=== PATIENT | female | born 1965 | race African-American/Black ===

== ENCOUNTER 2017-09-09 11:05 | Emergency (ER) | payer OTHER ==
[2017-09-09 11:17] VITALS: BP 126/74; PULSE 69; TEMP 98.8; BMI 34.8
[2017-09-09] MEDS ORDERED: KETOROLAC TROMETHAMINE 60 MG/2 ML VIAL IM ONE (12:00)
[2017-09-09] MEDS ORDERED: KETOROLAC TROMETHAMINE 60 MG/2 ML VIAL ONE (12:04)
--- NOTE | 2017-09-09 12:12 | PDOC ---
History of Present Illness - General Chief Complaint: Back Pain Stated Complaint: BACK PAIN Time Seen by Provider: 09/09/17 11:27 - History of Present Illness Initial Comments: 09/09/17 12:03 CHIEF COMPLAINT: back pain HISTORY OF PRESENT ILLNESS: 52 yo F with no PMH presents to fast track with mid back pain x 2 days. Patient reports she woke up "feeling something on her back " but then when she was driving and she turned her head to the right, she felt something tighten and then she felt pain. She denies any loss of sensation to her extremities and reports she is ambulatory, but she just "didn't feel like this is right" and wanted to come in for evaluation. PAST MEDICAL HISTORY: Denies past medical history FAMILY HISTORY: Denies SOCIAL HISTORY: Denies tobacco, alcohol, illicit drug use. SURGICAL HISTORY: Denies ALLERGIES: No known drug allergies REVIEW OF SYSTEMS General/Constitutional: Denies fever or chills. Denies weakness Cardiovascular: Denies chest pain or shortness of breath. Respiratory: Denies cough, wheezing. Genitourinary: Denies dysuria, frequency, or change in urination. Musculoskeletal: Right upper back pain. Denies joint or muscle swelling or pain. Skin: Denies rash or easy bruising. Neurologic: Denies headache, vertigo, loss of consciousness, or loss of sensation. PHYSICAL EXAM General Appearance: Well-appearing, appropriately dressed. No apparent distress. HEENT: EOMI, PERRLA. No conjunctival pallor. No photophobia, scleral icterus. Respiratory/Chest: Lungs CTAB. Cardiovascular: RRR. S1, S2. Musculoskeletal/Extremities: TTP to latissimus dorsi just inferior to R scapula. Normal inspection. FROM of all extremities, normal capillary refill. Pelvis Stable. No CVA tenderness. No tenderness to extremities, pedal edema, swelling , erythema or deformity. Integumentary: Appropriate color, dry, warm. No cyanosis, erythema, jaundice or rash Neurologic: punch molder II-XII intact. Fully oriented, alert. Appropriate mood/affect. Motor strength 5/5. No appreciable EOM palsy, facial droop or sensory deficit. Past History - Past Medical History Allergies/Adverse Reactions: Allergies Allergy/AdvReac Type Severity Reaction Status Date / Time No Known Allergies Allergy Verified 09/09/17 11:14 Home Medications: Ambulatory Orders Cyclobenzaprine HCl 7.5 mg PO HS PRN #7 tablet 09/09/17 Diclofenac Sodium 50 mg PO BID #14 tablet. 09/09/17 COPD: No - Reproductive History Cervical CA: No Dysfunctional Uterine Bleeding: No Ectopic : No Endometrial CA: No Polycystic Ovaries: No Tubal Ligation: No - Suicide/Smoking/Psychosocial Hx Smoking Status: Yes Smoking History: Never smoked Have you smoked in the past 12 months: No Number of Cigarettes Smoked Daily: 0 Hx Alcohol Use: No Drug/Substance Use Hx: No *Physical Exam - Vital Signs Last Vital Signs Temp Pulse Resp BP Pulse Ox 98.8 F 69 18 126/74 98 09/09/17 11:14 09/09/17 11:14 09/09/17 11:14 09/09/17 11:14 09/09/17 11:14 Medical Decision Making - Medical Decision Making 09/09/17 12:12 52 yo F with no PMH presents to fast track with mid back pain x 2 days. -60 mg Toradol NSAIDS, muscle relaxants. Advised patient to take medication as prescribed and follow up with ortho if symptoms persist. Advised patient of signs and symptoms for return to ED. Patient verbalized understanding and agrees to plan. *DC/Admit/Observation/Transfer Diagnosis at time of Disposition: Muscle strain of right scapular region - Discharge Dispostion Disposition: HOME Condition at time of disposition: Stable Admit: No - Prescriptions Prescriptions: Cyclobenzaprine HCl 7.5 mg PO HS PRN #7 tablet PRN Reason: Back Pain Diclofenac Sodium 50 mg PO BID #14 tablet.dr - Referrals Referrals: Martina Weathers [Primary Care Provider] - - Patient Instructions Printed Discharge Instructions: DI for Muscle Strain Additional Instructions: Please take medication as prescribed. As discussed, if your symptoms do not improve in 5-7 days, please follow up with an orthopedics for further evaluation and a possible MRI or physical therapy. If you experience any loss of sensation to your extremities, any loss of bowel or bladder function, any swelling or increased pain to your leg, please return to the ER. - Post Discharge Activity
== END 2017-09-09 12:30 | disposition home or self-care (01) ==
LOC: JERFT 11:05
PROC: 3E0233Z Introduction of Anti-inflammatory into Muscle, Percutaneous Approach (ICD-10-PCS; principal; 2017-09-09)
DX: S46.811A Strain of other muscles, fascia and tendons at shoulder and upper arm level, right arm, initial encounter (principal); X50.9XXA Other and unspecified overexertion or strenuous movements or postures, initial encounter; Y93.89 Activity, other specified; Y92.89 Other specified places as the place of occurrence of the external cause; Y99.8 Other external cause status
CPT/HCPCS: 96372; 99281-25

== ENCOUNTER 2020-07-11 11:33 | Inpatient (IN) | payer OTHER ==
[2020-07-11] MEDS ORDERED: DEXAMETHASONE 4 MG TABLET (FP) PO ONE (12:46)
[2020-07-11 13:24] LABS: BASO % 0.2 % (0-2.0); EOS % 0.1 % (0-4.5); HEMATOCRIT 40.1 % (32.4-45.2); HEMOGLOBIN 13.1 GM/dL (10.7-15.3); MCHC 32.8 g/dl (32.0-36.0); MEAN CELL VOLUME 82.5 fl (80-96); MEAN PLT VOLUME 9.5 fl (7.5-11.1); MONO % 6.2 % (3.8-10.2); NEUT % 85.5 % (42.8-82.8); PLATELET COUNT 203 K/MM3 (134-434); RBC 4.86 M/mm3 (3.60-5.2); RDW 14.3 % (11.6-15.6)
[2020-07-11 13:45] LABS: CALCIUM 8.8 mg/dL (8.5-10.1)
[2020-07-11 13:46] LABS: BLOOD UREA NITROGEN 9.1 mg/dL (7-18)
[2020-07-11] MEDS ORDERED: DEXAMETHASONE 4 MG TABLET (FP) ONE (13:48)
[2020-07-11 13:49] LABS: CREATININE 0.7 mg/dL (0.55-1.3); POTASSIUM 6.3 mmol/L (3.5-5.1)
[2020-07-11 13:50] LABS: BILIRUBIN,TOTAL 0.5 mg/dL (0.2-1); TOT PROT 7.2 g/dl (6.4-8.2)
[2020-07-11 14:47] LABS: CALCIUM 8.9 mg/dL (8.5-10.1); POTASSIUM 4.1 mmol/L (3.5-5.1)
[2020-07-11 14:49] LABS: BLOOD UREA NITROGEN 9.3 mg/dL (7-18)
[2020-07-11 14:52] LABS: CREATININE 0.6 mg/dL (0.55-1.3)
[2020-07-11 14:54] LABS: TOT PROT 6.6 g/dl (6.4-8.2)
[2020-07-11 14:55] LABS: BILIRUBIN,TOTAL 0.4 mg/dL (0.2-1)
[2020-07-11] MEDS ORDERED: ALBUTEROL SO4 2.5/IPRATROPIUM 0.5 INH SOL 3 ML VIAL.NEB. NEB PRN (19:55)
[2020-07-11] MEDS ORDERED: ALBUTEROL SO4 HFA INHALER IH PRN (19:58)
[2020-07-12 05:21] VITALS: BMI 30.5
[2020-07-12 08:53] LABS: BASO % 0.1 % (0-2.0); HEMOGLOBIN 12.9 GM/dL (10.7-15.3); LYMPH % 10.3 % (8-40); MCH 27.2 pg (25.7-33.7); MCHC 33.2 g/dl (32.0-36.0); MEAN CELL VOLUME 82.1 fl (80-96); MEAN PLT VOLUME 9.7 fl (7.5-11.1); MONO % 15.7 % (3.8-10.2); NEUT % 73.9 % (42.8-82.8); PLATELET COUNT 219 K/MM3 (134-434); RBC 4.75 M/mm3 (3.60-5.2); RDW 14.5 % (11.6-15.6); WHITE BLOOD COUNT 3.4 K/mm3 (4.0-10.0)
[2020-07-12 09:08] LABS: POTASSIUM 4.3 mmol/L (3.5-5.1)
[2020-07-12 09:20] LABS: ALBUMIN 2.8 g/dl (3.4-5.0); BILIRUBIN,TOTAL 0.4 mg/dL (0.2-1); BLOOD UREA NITROGEN 15.5 mg/dL (7-18); CALCIUM 9.1 mg/dL (8.5-10.1); TOT PROT 6.5 g/dl (6.4-8.2)
[2020-07-12 09:22] LABS: MAGNESIUM 2.2 mg/dL (1.8-2.4)
[2020-07-12 09:23] LABS: CREATININE 0.6 mg/dL (0.55-1.3)
[2020-07-12 09:24] LABS: PHOSPHOROUS 3.2 mg/dL (2.5-4.9)
[2020-07-12] MEDS ORDERED: DEXAMETHASONE 4 MG TABLET (FP) PO SCH (10:00)
[2020-07-12] MEDS: ZINC SULFATE 220 MG CAPSULE (FP) PO SCH (10:10)
[2020-07-12] MEDS: ASCORBIC ACID 500 MG TABLET (FP) PO SCH (10:10)
[2020-07-12] MEDS: ENOXAPARIN NA (PORCINE) 40 MG/0.4 ML DISP.SYRIN SQ SCH (10:10)
[2020-07-12] MEDS ORDERED: REMDESIVIR 200 MG in SODIUM CHLORIDE 210 ML IVPB ONE (19:00)
[2020-07-12] MEDS: FAMOTIDINE 20 MG/50 ML IVPB 20 MG/50 ML MG IVPB SCH (20:59)
[2020-07-13] MEDS: DEXAMETHASONE SOD PHOSPHATE 4 MG/1 ML VIAL IVPB SCH (09:44)
[2020-07-13] MEDS: ENOXAPARIN NA (PORCINE) 40 MG/0.4 ML DISP.SYRIN SQ SCH (09:44)
[2020-07-13] MEDS: ASCORBIC ACID 500 MG TABLET (FP) PO SCH (09:48)
[2020-07-13] MEDS: ZINC SULFATE 220 MG CAPSULE (FP) PO SCH (09:49)
[2020-07-13] MEDS: FAMOTIDINE 20 MG/50 ML IVPB 20 MG/50 ML MG IVPB SCH ×2 (09:49→21:25)
[2020-07-13 10:06] LABS: POTASSIUM 4.2 mmol/L (3.5-5.1)
[2020-07-13 10:08] LABS: CALCIUM 9.1 mg/dL (8.5-10.1)
[2020-07-13 10:09] LABS: ALBUMIN 2.8 g/dl (3.4-5.0); BLOOD UREA NITROGEN 18.8 mg/dL (7-18)
[2020-07-13 10:12] LABS: CREATININE 0.7 mg/dL (0.55-1.3)
[2020-07-13 10:13] LABS: BILIRUBIN,TOTAL 0.8 mg/dL (0.2-1); TOT PROT 6.4 g/dl (6.4-8.2)
[2020-07-13] MEDS: REMDESIVIR 100 MG in SODIUM CHLORIDE 230 ML IVPB SCH (18:48)
[2020-07-14 10:01] LABS: HEMOGLOBIN 12.8 GM/dL (10.7-15.3); MCHC 32.9 g/dl (32.0-36.0); MEAN PLT VOLUME 8.6 fl (7.5-11.1); PLATELET COUNT 307 K/MM3 (134-434); RBC 4.75 M/mm3 (3.60-5.2); RDW 14.5 % (11.6-15.6); WHITE BLOOD COUNT 5.4 K/mm3 (4.0-10.0)
[2020-07-14] MEDS: ENOXAPARIN NA (PORCINE) 40 MG/0.4 ML DISP.SYRIN SQ SCH (10:09)
[2020-07-14] MEDS: ZINC SULFATE 220 MG CAPSULE (FP) PO SCH (10:09)
[2020-07-14] MEDS: ASCORBIC ACID 500 MG TABLET (FP) PO SCH (10:10)
[2020-07-14] MEDS: FAMOTIDINE 20 MG/50 ML IVPB 20 MG/50 ML MG IVPB SCH ×2 (10:10→21:13)
[2020-07-14 10:26] LABS: ALBUMIN 2.6 g/dl (3.4-5.0)
[2020-07-14 10:30] LABS: CREATININE 0.8 mg/dL (0.55-1.3)
[2020-07-14 10:31] LABS: BILIRUBIN,TOTAL 0.4 mg/dL (0.2-1); TOT PROT 5.9 g/dl (6.4-8.2)
[2020-07-14 10:38] LABS: CALCIUM 8.9 mg/dL (8.5-10.1)
[2020-07-14] MEDS: DEXAMETHASONE SOD PHOSPHATE 4 MG/1 ML VIAL IVPB SCH (11:21)
[2020-07-14] MEDS: APIXABAN 5 MG TABLET PO SCH ×2 (13:26→21:13)
[2020-07-14] MEDS: REMDESIVIR 100 MG in SODIUM CHLORIDE 230 ML IVPB SCH (18:25)
[2020-07-14] MEDS ORDERED: APIXABAN 5 MG TABLET PO SCH (22:00)
[2020-07-15 09:44] LABS: HEMATOCRIT 37.8 % (32.4-45.2); HEMOGLOBIN 12.4 GM/dL (10.7-15.3); MCHC 32.7 g/dl (32.0-36.0); MEAN CELL VOLUME 82.5 fl (80-96); MEAN PLT VOLUME 8.8 fl (7.5-11.1); PLATELET COUNT 348 K/MM3 (134-434); RBC 4.59 M/mm3 (3.60-5.2); RDW 14.4 % (11.6-15.6); WHITE BLOOD COUNT 7.7 K/mm3 (4.0-10.0)
[2020-07-15 10:07] LABS: POTASSIUM 3.9 mmol/L (3.5-5.1)
[2020-07-15] MEDS: FAMOTIDINE 20 MG/50 ML IVPB 20 MG/50 ML MG IVPB SCH ×2 (10:16→21:47)
[2020-07-15] MEDS: APIXABAN 5 MG TABLET PO SCH ×2 (10:16→21:47)
[2020-07-15] MEDS: ASCORBIC ACID 500 MG TABLET (FP) PO SCH ×2 (10:16→21:47)
[2020-07-15] MEDS: ZINC SULFATE 220 MG CAPSULE (FP) PO SCH (10:16)
[2020-07-15] MEDS: DEXAMETHASONE SOD PHOSPHATE 4 MG/1 ML VIAL IVPB SCH (10:16)
[2020-07-15 10:20] LABS: ALBUMIN 2.4 g/dl (3.4-5.0); BLOOD UREA NITROGEN 11.6 mg/dL (7-18)
[2020-07-15 10:21] LABS: PHOSPHOROUS 2.8 mg/dL (2.5-4.9)
[2020-07-15 10:23] LABS: BILIRUBIN,TOTAL 0.5 mg/dL (0.2-1); CREATININE 0.6 mg/dL (0.55-1.3); TOT PROT 5.8 g/dl (6.4-8.2)
[2020-07-15 10:24] LABS: CALCIUM 8.7 mg/dL (8.5-10.1)
[2020-07-15] MEDS: REMDESIVIR 100 MG in SODIUM CHLORIDE 230 ML IVPB SCH (18:07)
[2020-07-15] MEDS: guaiFENesin 200 MG/10 ML 10 ML UNIT-DOSE CUPS PO PRN (18:16)
[2020-07-16 09:05] LABS: HEMATOCRIT 37.1 % (32.4-45.2); HEMOGLOBIN 12.3 GM/dL (10.7-15.3); MCHC 33.1 g/dl (32.0-36.0); MEAN CELL VOLUME 81.7 fl (80-96); MEAN PLT VOLUME 8.6 fl (7.5-11.1); PLATELET COUNT 405 K/MM3 (134-434); RBC 4.55 M/mm3 (3.60-5.2); RDW 14.3 % (11.6-15.6); WHITE BLOOD COUNT 8.4 K/mm3 (4.0-10.0)
[2020-07-16 09:10] LABS: POTASSIUM 4.2 mmol/L (3.5-5.1)
[2020-07-16 09:16] LABS: ALBUMIN 2.3 g/dl (3.4-5.0)
[2020-07-16 09:17] LABS: BLOOD UREA NITROGEN 14.2 mg/dL (7-18); CALCIUM 8.9 mg/dL (8.5-10.1)
[2020-07-16 09:19] LABS: CREATININE 0.7 mg/dL (0.55-1.3)
[2020-07-16 09:20] LABS: BILIRUBIN,TOTAL 0.4 mg/dL (0.2-1); TOT PROT 5.8 g/dl (6.4-8.2)
[2020-07-16 09:21] LABS: N-TERMINAL BNP 220.4 pg/ml (5-125)
[2020-07-16] MEDS: FAMOTIDINE 20 MG/50 ML IVPB 20 MG/50 ML MG IVPB SCH ×2 (11:00→21:40)
[2020-07-16] MEDS: APIXABAN 5 MG TABLET PO SCH ×2 (11:01→21:39)
[2020-07-16] MEDS: ZINC SULFATE 220 MG CAPSULE (FP) PO SCH (11:01)
[2020-07-16] MEDS: ASCORBIC ACID 500 MG TABLET (FP) PO SCH ×2 (11:01→21:39)
[2020-07-16] MEDS: DEXAMETHASONE SOD PHOSPHATE 4 MG/1 ML VIAL IVPB SCH (12:18)
[2020-07-16] MEDS: REMDESIVIR 100 MG in SODIUM CHLORIDE 230 ML IVPB SCH (18:43)
[2020-07-17] MEDS ORDERED: PT OWN MED DRAWER 7, Y5N ONE (09:23)
[2020-07-17 09:30] LABS: HEMATOCRIT 38.2 % (32.4-45.2); HEMOGLOBIN 12.7 GM/dL (10.7-15.3); MCH 27.3 pg (25.7-33.7); MCHC 33.2 g/dl (32.0-36.0); MEAN CELL VOLUME 82.4 fl (80-96); MEAN PLT VOLUME 8.7 fl (7.5-11.1); PLATELET COUNT 476 K/MM3 (134-434); RBC 4.63 M/mm3 (3.60-5.2); RDW 14.5 % (11.6-15.6); WHITE BLOOD COUNT 7.3 K/mm3 (4.0-10.0)
[2020-07-17] MEDS: guaiFENesin 200 MG/10 ML 10 ML UNIT-DOSE CUPS PO PRN (09:33)
[2020-07-17] MEDS: DEXAMETHASONE SOD PHOSPHATE 4 MG/1 ML VIAL IVPB SCH (09:33)
[2020-07-17] MEDS: ZINC SULFATE 220 MG CAPSULE (FP) PO SCH (09:35)
[2020-07-17] MEDS: ASCORBIC ACID 500 MG TABLET (FP) PO SCH ×2 (09:35→21:01)
[2020-07-17] MEDS: APIXABAN 5 MG TABLET PO SCH ×2 (09:36→21:01)
[2020-07-17] MEDS: FAMOTIDINE 20 MG TABLET PO SCH (09:36)
[2020-07-17 09:55] LABS: POTASSIUM 4.5 mmol/L (3.5-5.1)
[2020-07-17 10:08] LABS: BLOOD UREA NITROGEN 12.8 mg/dL (7-18); CALCIUM 9.4 mg/dL (8.5-10.1)
[2020-07-17 10:09] LABS: ALBUMIN 2.4 g/dl (3.4-5.0)
[2020-07-17 10:16] LABS: BILIRUBIN,TOTAL 0.4 mg/dL (0.2-1); CREATININE 0.6 mg/dL (0.55-1.3); PHOSPHOROUS 3.6 mg/dL (2.5-4.9); TOT PROT 5.9 g/dl (6.4-8.2)
[2020-07-18 10:01] LABS: HEMATOCRIT 39.1 % (32.4-45.2); HEMOGLOBIN 12.6 GM/dL (10.7-15.3); MCH 26.6 pg (25.7-33.7); MCHC 32.1 g/dl (32.0-36.0); MEAN CELL VOLUME 82.8 fl (80-96); MEAN PLT VOLUME 8.4 fl (7.5-11.1); PLATELET COUNT 476 K/MM3 (134-434); RBC 4.72 M/mm3 (3.60-5.2); RDW 14.5 % (11.6-15.6); WHITE BLOOD COUNT 7.3 K/mm3 (4.0-10.0)
[2020-07-18 10:22] LABS: POTASSIUM 4.3 mmol/L (3.5-5.1)
[2020-07-18] MEDS: DEXAMETHASONE SOD PHOSPHATE 4 MG/1 ML VIAL IVPB SCH (10:46)
[2020-07-18 10:47] LABS: CALCIUM 9.1 mg/dL (8.5-10.1)
[2020-07-18] MEDS: APIXABAN 5 MG TABLET PO SCH ×2 (10:47→21:52)
[2020-07-18] MEDS: FAMOTIDINE 20 MG TABLET PO SCH (10:47)
[2020-07-18] MEDS: ZINC SULFATE 220 MG CAPSULE (FP) PO SCH (10:47)
[2020-07-18] MEDS: ASCORBIC ACID 500 MG TABLET (FP) PO SCH ×2 (10:47→21:52)
[2020-07-18 10:48] LABS: ALBUMIN 2.3 g/dl (3.4-5.0); BLOOD UREA NITROGEN 14.5 mg/dL (7-18)
[2020-07-18] MEDS: guaiFENesin 200 MG/10 ML 10 ML UNIT-DOSE CUPS PO PRN (10:49)
[2020-07-18 10:51] LABS: CREATININE 0.7 mg/dL (0.55-1.3)
[2020-07-18 10:52] LABS: BILIRUBIN,TOTAL 0.8 mg/dL (0.2-1); TOT PROT 5.6 g/dl (6.4-8.2)
[2020-07-19] MEDS: APIXABAN 5 MG TABLET PO SCH ×2 (09:44→21:52)
[2020-07-19] MEDS: ASCORBIC ACID 500 MG TABLET (FP) PO SCH ×2 (09:44→21:52)
[2020-07-19] MEDS: ZINC SULFATE 220 MG CAPSULE (FP) PO SCH (09:44)
[2020-07-19] MEDS: FAMOTIDINE 20 MG TABLET PO SCH (09:44)
[2020-07-19] MEDS: DEXAMETHASONE SOD PHOSPHATE 4 MG/1 ML VIAL IVPB SCH (09:45)
[2020-07-19 11:24] LABS: HEMATOCRIT 36.6 % (32.4-45.2); HEMOGLOBIN 12.1 GM/dL (10.7-15.3); MCH 27.2 pg (25.7-33.7); MEAN CELL VOLUME 82.4 fl (80-96); MEAN PLT VOLUME 8.4 fl (7.5-11.1); PLATELET COUNT 485 K/MM3 (134-434); RBC 4.45 M/mm3 (3.60-5.2); RDW 14.4 % (11.6-15.6); WHITE BLOOD COUNT 6.6 K/mm3 (4.0-10.0)
[2020-07-19 11:45] LABS: POTASSIUM 4.1 mmol/L (3.5-5.1)
[2020-07-19 11:48] LABS: CALCIUM 8.9 mg/dL (8.5-10.1)
[2020-07-19 11:49] LABS: ALBUMIN 2.4 g/dl (3.4-5.0); BLOOD UREA NITROGEN 13.1 mg/dL (7-18)
[2020-07-19 11:52] LABS: CREATININE 0.6 mg/dL (0.55-1.3)
[2020-07-19 11:53] LABS: BILIRUBIN,TOTAL 0.4 mg/dL (0.2-1); TOT PROT 5.6 g/dl (6.4-8.2)
[2020-07-19 14:22] LABS: ANISOCYTOSIS 0; HELMET CELLS 0; HOWELL-JOLLY BODIES 0; MACROCYTOSIS 0; OVALOCYTE 0; PLATELET ESTIMATE INCREASED; ROULEAU 0; SICKELED CELLS 0; TARGET CELLS 0; TEAR DROP CELLS 0; TOXIC GRANULATION 0
[2020-07-20 08:22] LABS: BASO % 0.1 % (0-2.0); EOS % 0.5 % (0-4.5); HEMATOCRIT 34.1 % (32.4-45.2); HEMOGLOBIN 11.3 GM/dL (10.7-15.3); LYMPH % 18.5 % (8-40); MCH 27.1 pg (25.7-33.7); MCHC 33.1 g/dl (32.0-36.0); MEAN CELL VOLUME 81.9 fl (80-96); MEAN PLT VOLUME 8.4 fl (7.5-11.1); NEUT % 69.9 % (42.8-82.8); PLATELET COUNT 425 K/MM3 (134-434); RBC 4.17 M/mm3 (3.60-5.2); RDW 14.4 % (11.6-15.6); WHITE BLOOD COUNT 8.1 K/mm3 (4.0-10.0)
[2020-07-20 08:46] LABS: POTASSIUM 4.7 mmol/L (3.5-5.1)
[2020-07-20 08:49] LABS: ALBUMIN 2.2 g/dl (3.4-5.0); BLOOD UREA NITROGEN 13.6 mg/dL (7-18); CALCIUM 8.8 mg/dL (8.5-10.1)
[2020-07-20 08:52] LABS: PHOSPHOROUS 3.7 mg/dL (2.5-4.9)
[2020-07-20 08:53] LABS: CREATININE 0.6 mg/dL (0.55-1.3)
[2020-07-20 08:54] LABS: BILIRUBIN,TOTAL 0.3 mg/dL (0.2-1)
[2020-07-20] MEDS: ASCORBIC ACID 500 MG TABLET (FP) PO SCH ×2 (10:29→21:21)
[2020-07-20] MEDS: FAMOTIDINE 20 MG TABLET PO SCH (10:29)
[2020-07-20] MEDS: ZINC SULFATE 220 MG CAPSULE (FP) PO SCH (10:29)
[2020-07-20] MEDS: DEXAMETHASONE SOD PHOSPHATE 4 MG/1 ML VIAL IVPB SCH (10:30)
[2020-07-20] MEDS: APIXABAN 5 MG TABLET PO SCH ×2 (10:30→21:21)
[2020-07-21 09:12] LABS: BASO % 0.5 % (0-2.0); EOS % 0.5 % (0-4.5); HEMATOCRIT 37.5 % (32.4-45.2); HEMOGLOBIN 12.2 GM/dL (10.7-15.3); LYMPH % 20.4 % (8-40); MCH 26.9 pg (25.7-33.7); MCHC 32.6 g/dl (32.0-36.0); MEAN CELL VOLUME 82.5 fl (80-96); MEAN PLT VOLUME 8.5 fl (7.5-11.1); MONO % 8.2 % (3.8-10.2); NEUT % 70.4 % (42.8-82.8); PLATELET COUNT 453 K/MM3 (134-434); RBC 4.55 M/mm3 (3.60-5.2); RDW 14.5 % (11.6-15.6); WHITE BLOOD COUNT 9.4 K/mm3 (4.0-10.0)
[2020-07-21 09:27] LABS: POTASSIUM 4.6 mmol/L (3.5-5.1)
[2020-07-21 09:28] LABS: CALCIUM 9.2 mg/dL (8.5-10.1)
[2020-07-21 09:29] LABS: ALBUMIN 2.4 g/dl (3.4-5.0); BLOOD UREA NITROGEN 13.7 mg/dL (7-18)
[2020-07-21 09:32] LABS: CREATININE 0.7 mg/dL (0.55-1.3)
[2020-07-21 09:33] LABS: BILIRUBIN,TOTAL 0.9 mg/dL (0.2-1); TOT PROT 5.6 g/dl (6.4-8.2)
[2020-07-21] MEDS: ASCORBIC ACID 500 MG TABLET (FP) PO SCH ×2 (09:55→21:06)
[2020-07-21] MEDS: FAMOTIDINE 20 MG TABLET PO SCH (09:56)
[2020-07-21] MEDS: ZINC SULFATE 220 MG CAPSULE (FP) PO SCH (09:56)
[2020-07-21] MEDS: DEXAMETHASONE SOD PHOSPHATE 4 MG/1 ML VIAL IVPB SCH (09:56)
[2020-07-21] MEDS: APIXABAN 5 MG TABLET PO SCH ×2 (09:56→21:06)
[2020-07-21 11:52] LABS: ANISOCYTOSIS 0; MACROCYTOSIS 0; PLATELET ESTIMATE NORMAL
[2020-07-22] MEDS: guaiFENesin 200 MG/10 ML 10 ML UNIT-DOSE CUPS PO PRN (09:32)
[2020-07-22] MEDS: FAMOTIDINE 20 MG TABLET PO SCH (09:33)
[2020-07-22] MEDS: ZINC SULFATE 220 MG CAPSULE (FP) PO SCH (09:33)
[2020-07-22] MEDS: DEXAMETHASONE SOD PHOSPHATE 4 MG/1 ML VIAL IVPB SCH (09:33)
[2020-07-22] MEDS: ASCORBIC ACID 500 MG TABLET (FP) PO SCH (09:33)
[2020-07-22] MEDS: APIXABAN 5 MG TABLET PO SCH (09:33)
[2020-07-22 17:50] VITALS: BP 96/51; PULSE 71; TEMP 98.5
== END 2020-07-22 18:46 | disposition home health service (06) | DRG 137 ==
LOC: JER 11:33 → JERBED 13:42 → J5S 21:38
PROVIDERS: ADMIT Internal Medicine; ATTEND Internal Medicine
PROC: XW033E5 Introduction of Remdesivir Anti-infective into Peripheral Vein, Percutaneous Approach, New Technology Group 5 (ICD-10-PCS; principal; 2020-07-12)
DX: U07.1 COVID-19 (principal); R63.0 Anorexia; Z68.30 Body mass index [BMI] 30.0-30.9, adult; E66.9 Obesity, unspecified; E55.9 Vitamin D deficiency, unspecified; R73.03 Prediabetes; R43.0 Anosmia; J45.909 Unspecified asthma, uncomplicated; J96.01 Acute respiratory failure with hypoxia; J12.82 Pneumonia due to coronavirus disease 2019
CPT/HCPCS: 36415; 71045-TC-FY; 80048; 80053; 80061; 82728; 83036; 83615; 83721; 83735; 83880; 84100; 84443; 85025; 85027; 85379; 86140; 86769; 87804; 93005; 93010; 94010; 97116-GP; 97162-GP; 99285-25; C9399; C9803; U0003

== ENCOUNTER → 2021-07-15 | Day surgery (SDC) | payer OTHER | END | disposition home or self-care (01) | LOC: JRADIR 09:07 | PROVIDERS: ATTEND Internal Medicine Endocrinology, Diabetes & Metabolism | PROC: 0G9G3ZX Drainage of Left Thyroid Gland Lobe, Percutaneous Approach, Diagnostic (ICD-10-PCS; principal; 2021-07-15) | DX: E04.1 Nontoxic single thyroid nodule (principal) | CPT/HCPCS: 10005; 76942; 88173; 88305-TC ==

== ENCOUNTER 2022-02-13 01:30 | Emergency (ER) | payer OTHER ==
[2022-02-13 01:45] VITALS: BP 147/88; PULSE 68; RESP 18; TEMP 97.7; BMI 29.9
[2022-02-13] MEDS ORDERED: ACETAMINOPHEN 500 MG TABLET (FP) PO ONE (02:44)
[2022-02-13] MEDS ORDERED: ACETAMINOPHEN 325 MG TABLET (FP) ONE (02:45)
[2022-02-13] MEDS ORDERED: LIDOCAINE 5% TOPICAL PATCH TP ONE (02:56)
[2022-02-13] MEDS ORDERED: LIDOCAINE 5% TOPICAL PATCH ONE (03:10)
[2022-02-13] MEDS ORDERED: METHOCARBAMOL 500 MG TABLET PO ONE (04:24)
[2022-02-13] MEDS ORDERED: KETOROLAC TROMETHAMINE 30 MG/1 ML VIAL IM ONE (04:24)
[2022-02-13] MEDS ORDERED: METHOCARBAMOL 500 MG TABLET ONE (04:26)
[2022-02-13] MEDS ORDERED: KETOROLAC TROMETHAMINE 30 MG/1 ML VIAL ONE (04:26)
[2022-02-13] MEDS ORDERED: LIDOCAINE PATCH REMOVAL MC ONE (16:00)
== END 2022-02-13 04:33 | disposition home or self-care (01) ==
LOC: JER 01:30
PROC: 3E0233Z Introduction of Anti-inflammatory into Muscle, Percutaneous Approach (ICD-10-PCS; principal; 2022-02-13)
DX: M25.551 Pain in right hip (principal); V03.00XA Pedestrian on foot injured in collision with car, pick-up truck or van in nontraffic accident, initial encounter
CPT/HCPCS: 72170-TC-FY; 99284-25

== ENCOUNTER 2023-12-07 09:20 | Observation (INO) | payer OTHER ==
[2023-12-07 10:27] LABS: PH,URINE 5.5 (5.0-8.0); URINE APPEARANCE CLEAR; URINE BILIRUBIN 1+ (NEGATIVE); URINE COLOR DK YELLOW; URINE GLUCOSE (UA) NEGATIVE (NEGATIVE); URINE KETONE TRACE (NEGATIVE); URINE LEUK ESTERASE NEGATIVE (NEGATIVE); URINE NITRITE NEGATIVE (NEGATIVE); URINE PROTEIN TRACE (NEGATIVE)
[2023-12-07] MEDS: SODIUM CHLORIDE 1,000 ML IV STA (10:49)
[2023-12-07 10:58] LABS: BASO % 0.7 % (0-2.0); EOS % 11.8 % (0-4.5); HEMOGLOBIN 12.7 GM/dL (10.7-15.3); LYMPH % 48.3 % (8-40); MCH 27.5 pg (25.7-33.7); MCHC 32.5 g/dl (32.0-36.0); MEAN CELL VOLUME 84.4 fl (80-96); MEAN PLT VOLUME 8.4 fl (7.5-11.1); MONO % 9.1 % (3.8-10.2); NEUT % 30.1 % (42.8-82.8); PLATELET COUNT 260 10^3/uL (134-434); RBC 4.62 M/mm3 (3.60-5.2); RDW 14.5 % (11.6-15.6); WHITE BLOOD COUNT 4.7 K/mm3 (4.0-10.0)
[2023-12-07 11:22] LABS: POTASSIUM 4.6 mmol/L (3.5-5.1)
[2023-12-07 11:24] LABS: ALBUMIN 3.4 g/dl (3.4-5.0); CALCIUM 9.3 mg/dL (8.5-10.1)
[2023-12-07 11:25] LABS: BLOOD UREA NITROGEN 16.6 mg/dL (7-18)
[2023-12-07 11:28] LABS: CREATININE 0.8 mg/dL (0.55-1.3)
[2023-12-07 11:29] LABS: TOT PROT 6.9 g/dl (6.4-8.2)
[2023-12-07 11:30] LABS: BILIRUBIN,TOTAL 0.7 mg/dL (0.2-1)
[2023-12-07] MEDS ORDERED: ASPIRIN 81 MG CHEWABLE TABLETS ONE (15:12)
[2023-12-07] MEDS: ASPIRIN 81 MG CHEWABLE TABLETS PO ONE (15:14)
[2023-12-08 06:32] LABS: BASO % 0.8 % (0-2.0); EOS % 17.7 % (0-4.5); HEMATOCRIT 37.7 % (32.4-45.2); HEMOGLOBIN 12.1 GM/dL (10.7-15.3); LYMPH % 41.4 % (8-40); MCH 27.1 pg (25.7-33.7); MCHC 32.1 g/dl (32.0-36.0); MEAN CELL VOLUME 84.4 fl (80-96); MEAN PLT VOLUME 8.8 fl (7.5-11.1); MONO % 9.2 % (3.8-10.2); NEUT % 30.9 % (42.8-82.8); PLATELET COUNT 236 10^3/uL (134-434); RBC 4.47 M/mm3 (3.60-5.2); RDW 14.4 % (11.6-15.6); WHITE BLOOD COUNT 4.7 K/mm3 (4.0-10.0)
[2023-12-08 06:56] LABS: POTASSIUM 4.3 mmol/L (3.5-5.1)
[2023-12-08 07:01] LABS: CALCIUM 8.6 mg/dL (8.5-10.1)
[2023-12-08 07:02] LABS: BLOOD UREA NITROGEN 14.8 mg/dL (7-18); MAGNESIUM 1.8 mg/dL (1.8-2.4)
[2023-12-08 07:05] LABS: CREATININE 0.7 mg/dL (0.55-1.3); PHOSPHOROUS 3.9 mg/dL (2.5-4.9)
[2023-12-08 07:06] LABS: BILIRUBIN,TOTAL 0.5 mg/dL (0.2-1); TOT PROT 5.8 g/dl (6.4-8.2)
[2023-12-08] MEDS: ENOXAPARIN NA (PORCINE) 40 MG/0.4 ML DISP.SYRIN SQ SCH (10:04)
[2023-12-08] MEDS: ASPIRIN 81 MG CHEWABLE TABLETS PO SCH (20:30)
[2023-12-08] MEDS: ATORVASTATIN CA 80 MG TABLET (FP) PO ONE (20:30)
[2023-12-09 08:46] LABS: HEMATOCRIT 39.6 % (32.4-45.2); HEMOGLOBIN 12.9 GM/dL (10.7-15.3); MCH 27.4 pg (25.7-33.7); MCHC 32.5 g/dl (32.0-36.0); MEAN CELL VOLUME 84.5 fl (80-96); MEAN PLT VOLUME 9.1 fl (7.5-11.1); PLATELET COUNT 255 10^3/uL (134-434); RBC 4.69 M/mm3 (3.60-5.2); WHITE BLOOD COUNT 4.6 K/mm3 (4.0-10.0)
[2023-12-09] MEDS: metoPROLOL SUCCINATE 25 MG TAB.SR.24H (FP) PO SCH (08:58)
[2023-12-09 09:09] LABS: POTASSIUM 4.5 mmol/L (3.5-5.1)
[2023-12-09 09:14] LABS: CALCIUM 9.3 mg/dL (8.5-10.1)
[2023-12-09 09:15] LABS: BLOOD UREA NITROGEN 11.8 mg/dL (7-18)
[2023-12-09 09:18] LABS: CREATININE 0.7 mg/dL (0.55-1.3); PHOSPHOROUS 3.5 mg/dL (2.5-4.9)
[2023-12-09 09:52] VITALS: RESP 16
[2023-12-09] MEDS ORDERED: metoPROLOL SUCCINATE 25 MG TAB.SR.24H (FP) PO SCH (10:00)
[2023-12-09] MEDS ORDERED: REGADENOSON 0.4 MG/5 ML PRE-FILLED SYRINGE IVPUSH ONE (10:20)
[2023-12-09] MEDS: REGADENOSON 0.4 MG/5 ML PRE-FILLED SYRINGE IVPUSH ONE (10:58)
[2023-12-09 14:58] VITALS: BP 136/73; PULSE 72; TEMP 98.4
[2023-12-09] MEDS ORDERED: ATORVASTATIN CA 80 MG TABLET (FP) PO SCH (22:00)
== END 2023-12-09 17:15 | disposition home or self-care (01) ==
LOC: JER 09:20 → JERBED 14:56 → J4S 16:28
PROVIDERS: ADMIT Internal Medicine; ATTEND Internal Medicine
PROC: 3E033GC Introduction of Other Therapeutic Substance into Peripheral Vein, Percutaneous Approach (ICD-10-PCS; principal; 2023-12-07)
PROC: 3E0337Z Introduction of Electrolytic and Water Balance Substance into Peripheral Vein, Percutaneous Approach (ICD-10-PCS; 2023-12-07)
DX: I20.89 Other forms of angina pectoris (principal); R00.2 Palpitations; R06.02 Shortness of breath; E04.1 Nontoxic single thyroid nodule; J45.909 Unspecified asthma, uncomplicated; D72.10 Eosinophilia, unspecified; J43.8 Other emphysema; E66.9 Obesity, unspecified; R77.8 Other specified abnormalities of plasma proteins
CPT/HCPCS: 0241U-QW; 36415; 71046-TC-FY; 71275-TC; 78452-TC; 80048; 80053; 80061; 81003; 83036; 83735; 84100; 84439; 84443; 84484; 85025; 85027; 85379; 86682; 93005; 93010; 93017; 93306-TC; 96361; 96374; 99285-25; A9502; G0378; J2785; Q9967